=== PATIENT | female | born 2000 | race Caucasian/White ===

== ENCOUNTER 2022-06-15 17:41 | Inpatient (IN) | payer BC, OTHER, SELFPAY ==
[2022-06-15] VITALS (9 sets, daily range): BP systolic 114–122; BP diastolic 71–82; PULSE 81–96; RESP 16–18; TEMP 36.4–36.9; O2SAT 97–98; BMI 28.5
[2022-06-15 17:34] LABS: Amnisure Rom* POSITIVE
[2022-06-15 18:58] LABS: SARS PCR* Negative SARS-CoV-2 (Negative)
--- NOTE | 2022-06-15 19:49 | P.OBHP_ITS ---
OB - H&P: HPI Labor/Induction History of Present Illness Time Seen by Provider: 19:49 Date Seen: 06/15/22 Chief Complaint: The patient is a 21 year old 1 para 0 at 37w1d gestation by 6 week ultrasound (3 weeks off of LMP), who presents with SROM at home. Chief complaint: Maternity : 1 Para: 0 Narrative: Mandy Borja is a 21 year old female who presents with SROM. Patient had been bart off and on yesterday and today. She was moving boxes at home today and had SROM of clear fluid around 3pm. She History of Present Dating criteria: based on 1st trimester US only (3 weeks off of LMP) care: good care Ultrasounds: normal 1st trimester US and normal mid trimester US Medical complications: none Labs Blood type: B (+) positive Rubella: nonimmune GBS status: negative HBsAG: negative Narrative: Utox negative UA negative (+ketones) Hepatitix C neg HIV negative HBSAG negative Rubella non immune Treponema negative Blood type B+ Negative antibody screen Hemoglobin 13.9 Platelets 296 Hemoglobin A1c. 5.1 Gonorrhea negative Chlamydia negative Review of Systems Status of ROS: Reports: 10 or more systems reviewed and unremarkable except as noted in History and below Const: Denies: fever or chills Eyes: Denies: change in vision or blurry vision Cardio: Denies: shortness of breath with exertion Resp: Denies: shortness of breath GI: Reports: abdominal pain (contractions/cramping); Denies: nausea Integ/Breast: Denies: rash Neuro: Denies: headache Meds Home Medications and Allergies Home Medications Medication Instructions Recorded Confirmed Type [id number] fum 65 mg 1 pkg PO DAILY 06/15/22 06/15/22 History iron-folic acid 1 mg-dha 250 mg oral gilberto Allergies Allergy/AdvReac Type Severity Reaction Status Date / Time No Known Drug Allergies Allergy Verified 06/15/22 17:05 OB - H&P: Exam Physical Exam: Vital signs: Pulse BP Pulse Ox 94 122/78 98 06/15/22 19:11 06/15/22 19:11 06/15/22 19:09 Constitutional: Constitutional: no acute distress, average body habitus and cooperative Routine HEENT Exam: Head: Present atraumatic and normal inspection Eye: Absent conjunctival injection Routine Neck Exam: Neck: Present full ROM; Absent lymphadenopathy Detailed Neck Exam: Thyroids: Thyroid: Present normal Routine Chest/Breast/Axilla Exam: Chest wall: Absent tenderness Routine Respiratory Exam: Respiratory: Present CTA bilaterally; Absent crackles Routine Cardiovascular Exam: Cardiovascular: RRR, S1 and S2 Routine Exam: Perineum Description: Normal Detailed Labor and Delivery Exam: Patient Gravid: Yes Dilation (cm): 2 Effacement (%): 70 Cervix position: posterior Consistency: firm Cervical ripeness score: 4 Contraction frequency (min): 3 Tachysystole: No Contraction intensity: Mild Fetus (Single): Station: -2 Amniotic Membrane Status: SROM Amniotic Membrane Fluid Description: Clear Heart Rate Baseline: 120 Monitor Accelerations: Present Monitor Decelerations: None Halfway Variability: Moderate (6-25) Routine Skin Exam: Present intact Routine Neurological Exam: Present alert and oriented X3 Routine Psychiatric Exam: Present normal affect OB - Problem Based A/P Additional Plan (1) Term : Status: Acute (2) SROM (spontaneous rupture of membranes): Status: Acute Plan - Discussed options with patient. Is bart, not favorable cervix. Minimal change since check in clinic yesterday. Will start with PO cytotec per protocol. Pitocin prn. Anticipate , desires unmedicated delivery Delivery/Labor/Induction Plan Plan: induction (will start with cervical ripening given French score of 4. ) Induction method: per misoprostol protocol
[2022-06-15] MEDS: miSOPROStoL 25 MCG/0.25 TABLET PO ×2 (20:15→22:18)
[2022-06-16] VITALS (22 sets, daily range): BP systolic 94–122; BP diastolic 57–70; PULSE 83–106; RESP 16–18; TEMP 36.6–37.1; O2SAT 95–98
[2022-06-16] MEDS: OXYTOCIN 10 UNIT/ML INJ IM (02:36)
--- NOTE | 2022-06-16 03:06 | W.PM.OBVAGDE ---
OB Procedure Vag Delivery Mother Details Mother Details: The patient is a 21 year-old, 1, Para 0, admitted on 06/15/22 at 37w21 gestation. : 1 Para: 1 Weeks Gestation: 37.2 Admission Date: 06/15/22 Additional Details Amniotic Membrane Status: SROM Amniotic Membrane Rupture Date: 06/15/22 Amniotic Membrane Rupture Time: 15:00 Amniotic Membrane Fluid Description: Clear Analgesia/Anesthesia Type: None Waterbirth: No Pitcoin: No Intrapartal Events: None Induction Method: per misoprostol protocol Labor Onset: 23:30 Complete: 02:06 Pushin:09 Heart: heart tones during second stage were category 1 until pushing. Did have decels during pushes that recovered at first. Last 2 pushes baby had heart tones in 80-90s. Delivery Details Delivery Date: 06/16/22 Delivery Time: 02:22 Route of delivery: Infant Gender: Male Infant Viability: Alive; Heart Rate Present Position at Delivery: OA Delivery Details: Patient was admitted for SROM, 2 cm on presentation. Was given PO cytotec x 2. Patient progressed really well, unmedicated. She became complete and had strong urge to push. Patient pushed very effectively. Delivered over intact perineum via spontaneous vaginal delivery. Infant had nuchal cord x 1 that was reduced. Shoulders were delivered without difficulty. was placed on maternal abdomen.? Cord was clamped and cut after a 30 second delay. Nose and mouth were bulb suctioned.? baby was taken to the warmer for resuscitation (see notes for details). Returned to mom by 10 minutes of age. weight pending. 1 Minute Interval Total Score: 5 5 Minute Interval Total Score: 9 10 Minute Interval Total Score: 9 Additional Details Shoulder Dystocia: No Placenta Delivery Time: 02:35 Placental Delivery Description: Spontaneous Delivery repair: Vicryl Procedure Done: Global Blood Loss: 10 Laceration: Vaginal - 2nd Degree Blood Loss Measurement Type: QBL Bakri Used: No Sponge/Need Count Correct: Yes Cord Vessel Description: 3 Vessels, Nuchal Cord and Reduced Event Summary Status: Mother and infant were stable after delivery.
[2022-06-16] MEDS: ACETAMINOPHEN 500 MG TABLET 1000 MG PO ×3 (03:49→16:45)
[2022-06-16] MEDS: IBUPROFEN 600 MG TABLET PO ×3 (07:20→19:31)
[2022-06-16] MEDS: DOCUSATE SODIUM 100 MG CAPSULE PO (08:38)
[2022-06-16] MEDS: LANOLIN CREAM 1 APPLIC TOPICAL (21:00)
[2022-06-17] MEDS: ACETAMINOPHEN 500 MG TABLET 1000 MG PO ×2 (00:09→06:10)
[2022-06-17 00:10] VITALS: BP 101/64; PULSE 74; RESP 16; TEMP 36.6; O2SAT 95
[2022-06-17] MEDS: IBUPROFEN 600 MG TABLET PO (02:44)
[2022-06-17 07:18] VITALS: BP 97/65; PULSE 75; RESP 16; TEMP 36.6; O2SAT 95
[2022-06-17 07:22] VITALS: BP 97/65
[2022-06-17] MEDS: DOCUSATE SODIUM 100 MG CAPSULE PO (07:33)
--- NOTE | 2022-06-17 07:53 | PM.OBDSVD1 ---
DS: Providers Provider Time Seen by Provider: 07:00 Date Seen: 06/17/22 Date of admission: 06/15/22 17:41 Primary care physician: Not a Local Provider Admitting Clinician: Rachel Swanson MD Attending Physician on discharge: Rachel Swanson MD Date of Discharge: 06/17/22 DS: Diagnosis Discharge Diagnosis (1) SROM (spontaneous rupture of membranes): Status: Acute (2) Term : Status: Acute Exam Narrative: Exam Narrative: General appearance: Well-appearing adult female. Alert, oriented and appropriate. Sitting up in hospital bed. HEENT: EOMI, no conjunctival injection or discharge. MMM. Neck: Supple. CV: RRR, no rubs, murmurs or extra heart sounds. Pulm: CTAB, no wheezes, rales or rhonchi. Abdomen: Soft, non-tender. Fudus palpated 1 cm below the umbilicus. MSK: Moving all extremities. Ext: Warm and well-perfused. No LE edema. Skin: No rashes appreciated over exposed skin. Neuro: Grossly normal strenth and sensation. No focal deficits. Psych: Normal affect. Const: Vital Signs, click to edit/add: Vital Signs - 24 hr 06/16/22 11:22 06/16/22 16:43 06/16/22 20:30 Temperature 97.9 F 98.8 F 97.8 F Pulse Rate [Pulse Oximeter] 89 87 92 Respiratory Rate 16 18 16 Blood Pressure [Le ft Arm] 94/62 102/70 103/69 Pulse Oximetry 96 96 95 Oxygen Delivery Me thod Room Air Room Air Room Air 06/17/22 00:10 06/17/22 07:18 06/17/22 07:22 Temperature 97.9 F 98 F Pulse Rate [Pulse Oximeter] 74 75 Respiratory Rate 16 16 Blood Pressure [Le ft Arm] 101/64 97/65 97/65 Pulse Oximetry 95 95 Oxygen Delivery Me thod Room Air Room Air OB - DS: Summary Hospital Course Hospital Course: The patient is a 21 year old G 1 P 0 at 37+2 weeks gestation that was admitted to the Center on 06/15/22 for SROM. She had an uncomplicated vaginal delivery. She delivered a viable male infant. She is breast feeding. the patient has done well. [place] Gender: Male Time Spent with Patient Time attestation: Total time spent providing and/or coordinating discharge services: Discharge Plan Discharge Disposition: Home, Self-Care Date of Admission: 06/15/22 17:41 Attending Provider on Discharge: Kaylee Roberto Primary Care Provider: Provider,Not a Local Condition: Stable Anticipated Discharge Date/Time: 06/17/22 07:22 Discharge Medications: New acetaminophen 500 mg Tablet 1,000 mg PO Q6H PRN30 Days Qty: 30 0RF docusate sodium 100 mg Capsule 100 mg PO DAILY 30 Days Qty: 30 0RF ibuprofen 600 mg Tablet 600 mg PO Q6H PRN30 Days Qty: 30 0RF Continued vit 83-[id number]-[id number]-dha 65-1-250 mg combo pack 1 pkg PO DAILY Discharge Orders: Discharge Order (Routine); Ordered 06/17/22 Ordered By: Kaylee Roberto Patient Education: OB Vaginal/Breast Feeding Activity Level: Activity as Tolerated Discharge Diet: Regular Follow Up Appointments: Rachel Swasnon MD [Staff Physician] - (6 week post-) Forms: [facility] Info Instructions
== END 2022-06-17 10:28 | disposition home or self-care (01) | DRG 560 ==
LOC: OB OUT 06-21 09:17 → OB 06-21 09:17
PROVIDERS: Admitting Provider Family Medicine; Visit Provider Family Medicine
DX: O42.02 Full-term premature rupture of membranes, onset of labor within 24 hours of rupture (principal); O70.1 Second degree perineal laceration during delivery; Z3A.37 37 weeks gestation of pregnancy; Z37.0 Single live birth
CPT/HCPCS: 36415; 84112; 85018; 87635; 99213; A9270; J2590

== ENCOUNTER 2022-07-08 14:42 | Outpatient (CLI) | payer BC, OTHER, SELFPAY ==
--- NOTE | 2022-07-31 15:22 | P.LACCB_ITS ---
Consult Note - Mom Date of Visit Date of visit: 07/08/22 clinical science consultant: Felisha French Visit Code: Visit Patient's Information Phone number: [phone] : 1 Para: 1 Allergies No Known Drug Allergies Allergy (Verified 06/15/22 17:05) Work Plans: returns to work on 07/12/22 Delivery Information Delivery type: Vaginal Weeks Gestation: 37.3 Gestational Age: AGA Weight: 2.8 kg Discharge Weight: 2.914 kg Baby's Information Baby's Age at Visit: 3 weeks Baby's Provider or Clinic: Dr. Guzman Jaundice: No Reason for Consult Reason for Consult: plugged ducts, wants to try different nursing positions Past Experience Past Experience: No Current Frequency of Day Feedings: every 3 - 4 hours around the clock Both Breasts: Yes Suck: strong Latch: wide Length of Time: 10 - 15 minutes/side Pumping Pumping: Yes (occasionally) Quantity Pumped: 3 - 5 oz total each time Supplementing EMB Supplement: Yes (dad gives baby a bottle about once/day) Formula Supplement: No Baby Elimination Number of Wet Diapers a Day: every feeding Number of BM a Day: almost every feeding; yellow and seedy Breast/Nipple Condition Breast Information: WNL Engorgement: No Maternal Nipple Condition - Left: Common Nipple Maternal Nipple Condition - Right: Common Nipple Onsite Pre-Feed weight: 3.754 kg Post-Feed weight: 3.856 kg Milk Transferred (mL): 102 Pre-Nursing Left Nipple: Within Normal Limits Pre-Nursing Right Nipple: Within Normal Limits Post-Nursing Left Nipple: Within Normal Limits Post-Nursing Right Nipple: Within Normal Limits Assessments/Interventions Assessments/Interventions: Met with mom and this now three week old ex- term AGA baby for consult.? Mom called the office on 07/05 stating was going well but she had developed plugged ducts in her right breast.? During that phone call we discussed: continuing to nurse baby starting on the right side until plugged ducts resolved, warm compresses and pumping to comfort if needed after nursing, lymph drainage massage, and breast gymnastics (e-mailed her handout on the massage and link to breast gymnastics video).? Reviewed s/s of mastitis and a f/u appointment was made for today. Mom reports she tried everything suggested and her plugged ducts had resolved by this morning.? She reports baby is nursing every 3 - 4 hours, 10 - 15 min/side.? She would like to try a few different positions as she's only comfortable with cross cradle on the left and football on the right.? She has to return to work on 07/12 and has a good amount of milk stored up stating for the first week or so she was pumping after every feeding.? Now she pumps occasionally, getting 3 - 5 oz total each time.? Baby has no trouble taking a bottle.? Baby has gained 52 grams/day since his last visit on 06/28.? Mom denies any caput/cepalohematoma, states baby has equal ROM when turning his head and moving his extremities.? Palate is high.? Upper and lower frenulum are WNL.? Baby easily extends his tongue over the gum line and has a strong suck on a finger, there is some canoeing when the tongue move laterally.? Mom was assisted in latching baby on the right side in the cross cradle position and he nursed for about 15 minutes.? She was then assisted with the reclined position on the right and side lying on the left and baby nursed another 20 minutes transferring 102 ml (3.4 oz).? Plan: 1. Continue nursing ALD offering both sides each time, try the positions practiced in clinic.? Mom did a great job. 2. Suggested mom pump at work for as many feedings as she's missing. 3. If her plugged ducts re-occur can discuss lecithin supplements. 4. Will f/u with PCP for a 2 month WCC and in prn.? Meds Home Medications and Allergies Home Medications Medication Instructions Recorded Confirmed Type [id number] fum 65 mg 1 pkg PO DAILY 06/15/22 06/15/22 History iron-folic acid 1 mg-dha 250 mg oral gilberto Allergies Allergy/AdvReac Type Severity Reaction Status Date / Time No Known Drug Allergies Allergy Verified 06/15/22 17:05
== END 2022-07-08 14:43 | disposition home or self-care (01) ==
PROVIDERS: PCP Family Medicine; Visit Provider Obstetrics & Gynecology
DX: Z39.1 Encounter for care and examination of lactating mother (principal)
CPT/HCPCS: 99211